=== PATIENT | female | born 1960 | race Caucasian/White ===

== ENCOUNTER 2022-03-08 12:51 | Outpatient (RCR) | payer MEDICARE ==
[~2022-03-08 12:51] MED LIST: CEPHALEXIN500 M1 PO; CHLOR-TABS4 MG PO; COLACE 100100 MG/CAP PO; LINZESS145CAP PO; MULTIVITAMIN1 CTB PO; PERCOCET 325 MG1 TA2 PO; PREMPRO 0.625/21 TAB PO
== END 2022-03-22 | disposition home or self-care (01) ==
LOC: MKS.ESL.PT
DX: M25.511 Pain in right shoulder (principal)

== ENCOUNTER 2023-09-12 17:20 | Emergency (ER) | payer MEDICARE ==
[~2023-09-12] VITALS: Ht 175.3 cm; Wt 70.5 kg
[2023-09-12] MEDS ORDERED: NS 1,000 ML IV ONE ×2 (17:45→18:30)
[2023-09-12 17:51] LABS: BASO # 0.1 K/mm3 (0.0-0.2); BASO % 0.4 % (0.0-2.0); EOS # 0.1 K/mm3 (0.0-0.7); EOS % 0.9 % (0.0-4.0); GRAN % 87.4 % (42.2-75.2); HEMATOCRIT 49.2 % (37.0-47.0); HEMOGLOBIN 16.4 g/dl (12.5-16.0); LYMPH # 0.6 K/mm3 (1.2-3.4); LYMPH % 3.9 % (20.0-51.0); MEAN CELL VOLUME 91 fl (80.0-100.0); MEAN CORPUSCULAR HEMOGLOBIN 31 pg (27-31); MEAN CORPUSCULAR HGB CONC 33 g/dl (33.0-37.0); MEAN PLATELET VOLUME 9.9 fl (7.4-10.4); PLATELET COUNT 199 K/mm3 (130-400); RED BLOOD COUNT 5.38 M/mm3 (4.10-5.30); REDCELL DISTRIBUTION WIDTH-CV 13.3 % (11.5-14.5)
[2023-09-12] MEDS ORDERED: Ondansetron 4 MG/2 ML VIAL IV ONE (18:00)
[2023-09-12 18:11] LABS: ALANINE AMINOTRANSFERASE 16 U/L (0-55); ALBUMIN 3.1 gm/dL (3.4-4.8); ALKALINE PHOSPHATASE 31 U/L (40-150); ANION GAP 10 mmol/L (7-16); AST,SGOT 19 U/L (5-34); BILIRUBIN,TOTAL 0.7 mg/dL (0.2-1.2); BLOOD UREA NITROGEN 15 mg/dL (10-20); CALCIUM 9.1 mg/dL (8.4-10.2); CARBON DIOXIDE 20 mmol/L (23-31); CHLORIDE 110 mmol/L (98-107); CREATININE, serum 0.92 mg/dL (0.57-1.11); GLUCOSE 110 mg/dL (70-99); LIPASE 31 U/L (8-78); POTASSIUM 4.5 mmol/L (3.5-4.5); SODIUM 140 mmol/L (136-145); TOTAL PROTEIN 5.4 gm/dL (6.2-8.1)
[2023-09-12 18:21] LABS: TROPONIN-I < 0.010 ng/mL (0.00-0.033)
[2023-09-12 19:54] LABS: PH 7.5 (5.0-8.5); URINE APPEARANCE CLEAR (CLEAR/HAZY); URINE BLOOD NEGATIVE (NEGATIVE); URINE COLOR YELLOW (YELLOW); URINE GLUCOSE NEGATIVE (NEGATIVE); URINE KETONE 1+ (NEGATIVE); URINE NITRATE NEGATIVE (NEGATIVE); URINE PROTEIN(semi-quant) NEGATIVE (NEGATIVE); URINE UROBILINOGEN 0.2 E.U/dL (0.2-1.0)
[2023-09-12 20:00] LABS: COLLECTION METHOD CLEAN CATCH
[2023-09-12 20:09] VITALS: BP 114/71; PULSE 81
== END 2023-09-12 20:15 | disposition home or self-care (01) ==
LOC: COL.ER 17:20
PROVIDERS: Nurse Practitioner Primary Care
DX: R55 Syncope and collapse (principal); R11.0 Nausea
CPT/HCPCS: J0780; J2405; J7030